=== PATIENT | male | born 1955 ===

== ENCOUNTER 2017-03-28 15:46 | Emergency (ER) | payer MEDICARE ==
[2017-03-28 16:21] VITALS: BMI 27.1
[2017-03-28 16:28] VITALS: RESP 20; TEMP 98.9
[2017-03-28] MEDS ORDERED: guaiFENesin 100 mg/5 ml Syrup UD PO STA (16:37)
--- NOTE | 2017-03-28 16:37 | C.PDOC ---
Time Seen by Provider: 03/28/17 16:32 Chief Complaint (Nursing): Back Pain Past Medical History Vital Signs: Last Vital Signs Temp 98.9 F 03/28/17 16:21 Pulse 84 03/28/17 16:21 Resp 20 03/28/17 16:21 BP 123/80 03/28/17 16:21 Pulse Ox 96 03/28/17 16:37 - Medical History PMH: Arthritis, HTN, Rheumatoid Arthritis Denies: Colonic Polyps Surgical History: Endoscopy Family History: States: Unknown Family Hx - Social History Hx Alcohol Use: Yes Hx Substance Use: No - Immunization History Hx Tetanus Toxoid Vaccination: No Hx Influenza Vaccination: No Hx Pneumococcal Vaccination: No ED Course And Treatment O2 Sat by Pulse Oximetry: 96 - Radiology CXR: Interpreted by Me CXR Interpretation: Yes: Infiltrates (RLL- resolving infiltrate, no apical lesions to suspect TB) Progress Note: ibuprofen, ice pack for posterior ribs, robitussin PO Reevaluation Time: 16:49 Reassessment Condition: Improved Medical Decision Making Medical Decision Making: b/l posterior rib costochondritis from chronic cough, now resolved h/o "TB" with 1 full 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 Disposition Doctor Will See Patient In The: Office Counseled Patient/Family Regarding: Studies Performed, Diagnosis - Disposition Disposition: HOME/ ROUTINE Disposition Time: 16:51 Condition: GOOD Forms: [employer] ([place]atian) - Clinical Impression Clinical Impression: Rib sprain
--- NOTE | 2017-03-28 17:00 | RAD ---
HISTORY: b/l thoracic back rib pain with cough, h/o TB COMPARISON: No prior. TECHNIQUE: Chest PA and lateral FINDINGS: LUNGS: No consolidation. On the lateral view a 1 cm rounded hyperdensity reject below the chi. It is appreciated on the frontal view. A calcified hyperdense node or a rounded prominence of the anterior inferior vertebral body spur are some considerations. Benign etiology is favored. PLEURA: No significant pleural effusion identified. No pneumothorax apparent. CARDIOVASCULAR: Normal. OSSEOUS STRUCTURES: Thoracic spondylosis VISUALIZED UPPER ABDOMEN: Normal. OTHER FINDINGS: None. IMPRESSION: On these images no gross rib pathology noted anterior inferior thoracic spondylosis noted possible rounded anterior inferior spur. Calcified lymph node is another consideration. Recommend comparison with any earlier outside chest x-rays No pulmonary infiltrate.
[2017-03-28] MEDS ORDERED: guaiFENesin 100 mg/5 ml Syrup UD ONE (17:03)
[2017-03-28 18:00] VITALS: BP 123/77; PULSE 78; O2SAT 98
== END 2017-03-28 17:59 | disposition home or self-care (01) ==
LOC: C.ER 15:46
DX: S23.41XA Sprain of ribs, initial encounter (principal); X58.XXXA Exposure to other specified factors, initial encounter; Y92.9 Unspecified place or not applicable